=== PATIENT | female | born 1985 | race Hispanic/Latino ===

== ENCOUNTER → 2023-09-20 | Outpatient (CLI) | payer OTHER ==
[2023-09-20 11:26] LABS: BASOPHILS # (AUTO) 0.05 K/uL (0.00-0.20); BASOPHILS % (AUTO) 0.8 % (0.0-5.0); EOSINOPHILS # (AUTO) 0.14 K/uL (0.00-0.70); EOSINOPHILS % (AUTO) 2.4 % (0.0-8.0); HEMATOCRIT 39.2 % (36-48); IMMATURE GRANULOCYTE ABSOLUTE 0.02 K/uL (0-1); LYMPHOCYTES # (AUTO) 1.6 K/uL (1.0-4.8); LYMPHOCYTES % (AUTO) 27.4 % (21.0-51.0); MEAN CORPUSCULAR HEMOGLOBIN 27.5 pg (27.0-33.0); MEAN CORPUSCULAR HGB CONC 31.9 g/dL (32.0-36.0); MEAN CORPUSCULAR VOLUME 86.2 fL (79-99); MONOCYTES # (AUTO) 0.3 K/uL (0.1-1.0); MONOCYTES % (AUTO) 5.4 % (3.0-13.0); NEUTROPHILS # (AUTO) 3.8 K/uL (1.8-7.7); NEUTROPHILS % (AUTO) 63.7 % (40.0-77.0); PLATELET COUNT (AUTO) 402 K/uL (130-400); RED BLOOD CELL COUNT(AUTO) 4.55 MIL/uL (4.00-5.50); RED CELL DISTRIBUTION WIDTH 12.8 % (11.0-15.5); WHITE BLOOD COUNT (AUTO) 5.9 K/uL (4.8-10.8)
[2023-09-20 11:43] LABS: ALBUMIN 3.5 g/dL (3.5-5.0); BILIRUBIN,TOTAL 0.4 mg/dL (0.2-1.0); CREATININE 0.7 mg/dL (0.5-1.5); POTASSIUM 4.2 mmol/L (3.5-5.1); TOTAL PROTEIN, SERUM 7.3 g/dL (6.0-8.3)
[2023-09-20 12:15] LABS: INR < 0.93 (0.85-1.15); PROTHROMBIN TIME 10.3 SEC (9.6-11.6)
[2023-09-20 12:17] LABS: PARTIAL THROMBOPLASTIN TIME 29.5 SEC (26.3-35.5)
== END | disposition home or self-care (01) ==
LOC: LAB 10:49
PROVIDERS: ATTEND Surgery
DX: K92.1 Melena (principal)
CPT/HCPCS: 36415; 80053; 85025; 85610; 85730